=== PATIENT | female | born 1935 | race Caucasian/White ===

== ENCOUNTER 2017-01-15 09:02 | Inpatient (IN) ==
--- NOTE | 2017-01-15 09:31 | PROVIDER DOCUMENTATION ---
HPI-Headache - General Chief Complaint: Headache Stated Complaint: HEADACHE, NO APPETITE Time Seen by Provider: 01/15/17 09:11 Source: patient Allergies/Adverse Reactions: Patient Allergies Allergy/AdvReac Type Severity Reaction Status Date / Time No Known Allergies Allergy Verified 01/15/17 09:32 Home Medications: Home Medication List Medication Instructions Recorded Confirmed Last Taken Type Cholecalciferol (Vitamin D3) 1,000 unit PO DAILY 02/20/14 01/15/17 01/15/17 History [Vitamin D] Digoxin [Digox] 125 mcg PO DAILY 02/20/14 01/15/17 01/15/17 History Apixaban [Eliquis] 2.5 mg PO BID 01/15/17 01/15/17 01/15/17 History Aspirin [Aspir-Low] 81 mg PO DAILY 01/15/17 01/15/17 01/15/17 History Diltiazem HCl [Diltiazem 24Hr ER] 180 mg PO DAILY 01/15/17 01/15/17 01/15/17 History Levofloxacin [Levaquin] 250 mg PO DAILY #5 tablet 01/15/17 Unknown Rx - History of Present Illness-Headache Nature of Presenting Problem: 81 YO WF presents with FOLEY x 2 days and lack of appetite/no eating, sent from an urgent care clinic this morning. Says this "doesn't happen to her" but thinks she has over exerted herself with increased walking activity lately. FOLEY has decreased since being in the ED. Is a frontal headache, no vision changes or N/ V. Does not have a hx of FOLEY. Only health hx is some kind of heart problem, [facility]; no PCM. Takes anticoags. Denies chest pain, SOB, palpitations, vision changes, fever, weight loss, night sweats, abdominal pain, urinary changes. 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 Headache Location: reports: frontal Quality of Pain: reports: aching, dull Severity: reports: moderate Onset/Duration: reports: 2 days ago Timing: reports: still present, improving Headache Context: reports: nothing Any recent trauma/injury?: reports: none Headache severity at the maximum: moderate Preceding Symptoms: denies: visual disturbances, scotoma, aura(s), typical of previous aura(s) Headache Exacerbated by:: reports: nothing Modifying Factors: improves with: analgesics (tried aspirin, did not help) Associated Symptoms: reports: headache, other (no appetitie). denies: short of breath, decreased ability to walk or stand, fainting, dizziness, confusion, chest pain, neck/back pain, fatigue, fever/chills, insomnia, loss of consciousness, muscle spasms, nausea, numbness in legs/feet, paresthesia, diaphoretic, ringing in ears, sleepy, slurred speech, tingling in legs/feet, trouble walking, vomiting, vision changes, weakness Similar Symptoms Previously?: No Recently seen or treated by another doctor?: No Review of Systems - Adult - REVIEW OF SYSTEMS - ADULT Constitutional: denies: chills, fever Eyes: denies: decreased vision, blurred vision, double vision Ears, Nose, Mouth & Throat: denies: ear pain, sinus problem, nose pain, hoarseness, throat pain, throat swelling Cardiovascular: denies: chest pain, syncope Respiratory: denies: cough, shortness of breath, wheezing Gastrointestinal: reports: poor appetite. denies: abdominal pain, diarrhea, nausea, vomiting Genitourinary: denies: dysuria, discharge, frequency, hematuria, incontinence, urinary retention, urgency Musculoskeletal: denies: bone pain, back pain, joint pain, joint swelling, neck pain Integumentary: denies: itching, rash, skin sores/ulcer Neurological: reports: headache/migraines. denies: dizziness/vertigo Past History - Adult - PAST MEDICAL HISTORY-ADULT Review of Records: reports: Old Records Reviewed, Nursing Assessment Review, Medications Reviewed Cardiovascular: reports: A-Fib - FAMILY HISTORY Family History: reviewed, not pertinent Physical Exam- Neurological - Physical Exam-Neuro Initial Vital Signs Reviewed: Yes General Appearance: appears well, alert, no apparent distress Eye Exam: bilateral eye: normal inspection, PERRL, EOMI HENMT: normocephalic/atraumatic, moist mucous membranes, normal ENT inspection, TMs normal, pharynx normal. negative: hearing deficit, pharyngeal erythema, tonsillar exudate Head Injury: no evidence of injury Neck: full range of motion, supple, normal inspection Respiratory: lungs clear, normal breath sounds, no respiratory distress, no accessory muscle use. negative: crackles, rales, rhonchi, stridor, wheezing Cardiovascular: normal peripheral pulses, tachycardia, irregularly irregular. negative: no edema, no gallop, no JVD, no murmur Abdominal Exam: non tender, soft. negative: distended, guarding, rigid, rebound , tenderness Peripheral Pulses: radial (R): 2+, radial (L): 2+, dorsalis-pedis (R): 2+, dorsalis-pedis (L): 2+ Extremity: non-tender, normal gait, normal inspection, no pedal edema, no calf tenderness. negative: deformity, erythema, inflammation, joint effusion last putter away Exam: normal hearing, normal speech, PERRL. negative: abnormal speech, facial asymmetry, facial droop, facial paresthesias, facial weakness, tongue deviation to R, tongue deviation to L Coordination/Gait: normal finger to nose, normal gait Motor/Sensory: no motor deficit, no sensory deficit, no pronator drift Neurologic: last putter away II-XII nml as tested, grossly normal Integumentary: normal color, warm/dry Psych/Mental Status: normal mood/affect, normal thought content, normal thought process - Glascow Coma Scale Best Eye Response: (4) open spontaneously Best Verbal Response: (5) oriented Best Motor Response: (6) obeys commands Progress - PLAN OF CARE/RESULTS Progress/Plan/Lab Results: Vital Signs - 8 hr 01/15/17 09:05 01/15/17 10:53 01/15/17 11:14 Temperature 97.9 F Pulse Rate 119 H 116 H 96 H Respiratory Rate 18 16 17 Blood Pressure 160/111 168/110 159/95 O2 Sat by Pulse Oximetry 100 98 95 01/15/17 12:50 01/15/17 14:08 01/15/17 14:27 Temperature 97.7 F Pulse Rate 106 H 102 H 98 H Respiratory Rate 16 17 20 Blood Pressure 142/101 166/113 165/95 O2 Sat by Pulse Oximetry 96 97 98 01/15/17 14:54 Temperature Pulse Rate 93 H Respiratory Rate 18 Blood Pressure 161/109 O2 Sat by Pulse Oximetry 96 Laboratory Results - last 24 hr 01/15/17 01/15/17 01/15/17 09:35 09:41 09:41 WBC 9.74 RBC 4.82 Hgb 16.1 H Hct 43.6 MCV 90.5 MCH 33.4 H MCHC 36.9 RDW Std Deviation 14.3 Plt Count 266 MPV 11.2 H Immature Gran % (Auto) 0.0 Neut % (Auto) 65.1 Lymph % (Auto) 24.5 [place] % (Auto) 7.8 Eos % (Auto) 2.1 Baso % (Auto) 0.5 Immature Gran # (Auto) 0.00 Neut # (Auto) 6.34 Lymph # (Auto) 2.39 [place] # (Auto) 0.76 H Eos # (Auto) 0.20 Baso # (Auto) 0.05 D-Dimer Sodium 145 Potassium 3.6 Chloride 107 Carbon Dioxide 23 L Anion Gap 15 BUN 13 Creatinine 1.2 H Estimated GFR/1.73 m2 43 BUN/Creatinine Ratio 11 Glucose 92 Calculated Osmolality 288 Calcium 9.4 Total Bilirubin 0.63 AST 17 ALT 16 Alkaline Phosphatase 66 Creatine Kinase 41 Troponin T Rqu-[id number]-Crxnajaxnel Pept Total Protein 7.2 Albumin 4.6 Globulin 2.6 Albumin/Globulin Ratio 1.8 Urine Source CLEAN CATCH Urine Color YELLOW Urine Turbidity CLEAR Urine pH 5.5 Ur Specific [place] 1.016 Urine Protein TRACE A Ur Glucose (Stick) NEGATIVE Ur Ketones (Stick) NEGATIVE Urine Blood NEGATIVE Urine Nitrite NEGATIVE Urine Bilirubin NEGATIVE Urobilinogen Dipstick NORMAL Urine Leukocytes MODERATE A Urine WBC (Auto) 10-20 A Urine RBC (Auto) <10 U Epithel Cells (Auto) <10 Urine Bacteria (Auto) NEGATIVE 01/15/17 01/15/17 01/15/17 09:41 09:41 09:41 WBC RBC Hgb Hct MCV MCH MCHC RDW Std Deviation Plt Count MPV Immature Gran % (Auto) Neut % (Auto) Lymph % (Auto) [place] % (Auto) Eos % (Auto) Baso % (Auto) Immature Gran # (Auto) Neut # (Auto) Lymph # (Auto) [place] # (Auto) Eos # (Auto) Baso # (Auto) D-Dimer 0.14 Sodium Potassium Chloride Carbon Dioxide Anion Gap BUN Creatinine Estimated GFR/1.73 m2 BUN/Creatinine Ratio Glucose Calculated Osmolality Calcium Total Bilirubin AST ALT Alkaline Phosphatase Creatine Kinase Troponin T < 0.010 [id number] Pept 2105 H Total Protein Albumin Globulin Albumin/Globulin Ratio Urine Source Urine Color Urine Turbidity Urine pH Ur Specific [place] Urine Protein Ur Glucose (Stick) Ur Ketones (Stick) Urine Blood Urine Nitrite Urine Bilirubin Urobilinogen Dipstick Urine Leukocytes Urine WBC (Auto) Urine RBC (Auto) U Epithel Cells (Auto) Urine Bacteria (Auto) Orders Category Date Time Status CHEST-2 VIEWS [RAD] Stat Exams 01/15/17 11:[address] HEAD W/O CONTRAST [CT] Stat Exams 01/15/17 09:23 Completed CBC WITH DIFF [HEME] Stat Lab 01/15/17 09:41 Completed CK PROFILE [SP CHEM] Stat Lab 01/15/17 09:41 Completed COMPREHENSIVE METABOLIC PANEL [CHEM] Stat Lab 01/15/17 09:41 Completed D-DIMER [CHEM] Stat Lab 01/15/17 09:41 Completed PRO B-NATRIURETIC PEPTIDE Stat Lab 01/15/17 09:41 Completed TROPONIN T Stat Lab 01/15/17 09:41 Completed UA NIMS W/REFLEX CULT [URINALYSIS] Stat Lab 01/15/17 09:35 Completed URINE CULTURE [RM] Routine Lab 01/15/17 11:30 Received Levofloxacin 250 mg/D5w [Levaquin 250 mg/D5w] Med 01/15/17 12:34 Discontinued 250 mg in 50 ml IV NOW Metoprolol [Lopressor] Med 01/15/17 10:02 Discontinued 5 mg IV NOW ONE Metoprolol [Lopressor] Med 01/15/17 12:34 Discontinued 5 mg IV NOW ONE EKG [EKG] Routine Ther 01/15/17 11:20 Draft EKG [EKG] Stat Ther 01/15/17 09:24 Draft Pt BP and HR continue to stay up despite Lopressor. Will discuss admission with pt again, very concerning that has a fib, elevated BP. Per Dr. Story will have ot sign AMA if does not want to stay for admission. Discussed with pt, agrees to be admitted. Admit for UTI, altered mental status, HTN, A fib. Result Diagrams: 01/15/17 09:41 01/15/17 09:41 - REASSESSMENT Reassessment #1 Time Reassessed: 09:59 (Discussed with Dr. Story. Pt has a fib with rapid response, no SOB or cheste pain currently but states can "feel her heart beating ". Recommends Lopressor, wait for rest of cardiac labs to come back. ) Reassessment #2 Time Reassessed: 10:52 (NEG cardiac labs. Pt just had Lopressor given, will recheck vitals and EKG, per Dr. Story and see if slows/converts. ) Reassessment #3 Time Reassessed: 12:34 (Dr. Story at bedside. Recommends second round of Lopressor, abx and can d/c home with abx and follow up with [facility] and her pCM. ) Reassessment #4 Time Reassessed: 13:53 (Rechecked pt. She has a different attitude every time i have been in the room, some times happy and grateful, and sometimes says no one has been in to see her at all, she hasn't been able to go to the bathroom, etc. Dr. Story at bedside. Discussed with him that pt seems altered. Has UTI, is having to get a second round of Lopressor. Pt doesn't know why she goes to the [facility]. Recommend admission. Dr. Story agrees. ) Reassessment #5 Time Reassessed: 14:21 (Pt refuses admission. Wants to go home. Agrees with staying ot make sure her BP/HR goes down, but declines to stay in the hospital. Discussed with Dr. Story, agrees with plan. Pt states she will call tomorrow for appt with [facility]. Denies chest pain/SOB or any pain anywhere currently. Current vitals: 165/95, HR 113. ) - CONSULTS/PCP/HOSPITALIST Notification #1 *Consult/PCP/Hospitalist*: DEONTE Wharton for Hospitalist. Dr. Vera Time Discussed: 16:11 (Admit for UTI, altered mental status, A fib with RVR, A flutter. ) Consult Disposition: Admit Departure - Departure Date of Disposition Decision: 01/15/17 Time of Disposition Decision: 16:12 DIAGNOSIS: Atrial fibrillation with RVR UTI (urinary tract infection) Qualifiers: Urinary tract infection type: acute cystitis Hematuria presence: without hematuria Qualified Code(s): N30.00 - Acute cystitis without hematuria Atrial fibrillation Qualifiers: Atrial fibrillation type: chronic Qualified Code(s): I48.2 - Chronic atrial fibrillation Altered mental status Qualifiers: Coma depth: unspecified coma depth Disposition: ADMITTED INPATIENT 09 Certified Medical Emergency: Emergent Condition: Stable Additional Freetext Instructions: take all of the antibiotics until they are gone. Call the [facility] tomorrow schedule a follow up appointment next week, and also follow up with your primary care provider next week as planned. Return to the ER if your symptoms worsen, you develop chest pain or shortness of breath. ED Follow Up Instructions: You have been treated by a care provider in the Emergency Department. These instructions are being provided to you so you can have an understanding of how to care for yourself upon discharge. Upon discharge from the Emergency Department, you are responsible for making arrangements for follow-up care by a physician of your choice. Take all prescribed medications as directed. Return to the Emergency Department immediately for any new or worsening symptoms. You may call the Physician Referral phone number at [phone] to obtain a list of Physicians who are taking new patients. Prescriptions: Levofloxacin [Levaquin] 250 mg PO DAILY #5 tablet Referrals and Follow-Ups: None,PCP [Primary Care Provider] - Discharge Education: Urinary Tract Infection, [id number], Atrial Fibrillation , [id number] - Critical Care Note This patient required my direct & personal management of CC.: No Attestation - Physician/ GRAZYNA Attestation Patient care was provided by Advanced Practice Provider:: Yes Advanced Practice Provider:: Cornelio Moncada Advanced Practice Provider documentation review:: The Mid-level provider documentation, treatment plan and medical decision making was reviewed by the physician who agrees with all treatment and medical decision making by the MLP. The physician spent face to face time with patient:: Yes Advanced Practice Provider documentation review:: Supervising physician onsite and consulted in the evaluation and care of this patient. The physician did have a face to face encounter with the patient.
--- NOTE | 2017-01-15 09:43 | EKG Report ---
Test Performed on : 01/15/2017 09:20:13 AM Test Reason : tachycardia, FOLEY Blood Pressure : / mmHG Vent. Rate : 124 BPM Atrial Rate : 122 BPM P-R Int : 000 ms QRS Dur : 066 ms QT Int : 314 ms P-R-T Axes : 000 -02 -69 degrees QTc Int : 451 ms Atrial fibrillation. with rapid ventricular response. Possible Inferior infarct , age undetermined ST \T\ T wave abnormality, consider anterolateral ischemia Abnormal ECG When compared with ECG of 20-FEB-2014 04:22, ST now depressed in Anterior leads T wave inversion now evident in Anterolateral leads Unconfirmed Result
[2017-01-15 09:53] LABS: URINE MICRO REVIEW NEEDED? NO; URINE SOURCE CLEAN CATCH
[2017-01-15] MEDS ORDERED: LOPRESSOR IV ONE ×2 (10:02→12:34)
[2017-01-15 10:04] LABS: BILIRUBIN URINE NEGATIVE (NEGATIVE); BLOOD URINE NEGATIVE (NEGATIVE); COLOR YELLOW; GLUCOSE URINE NEGATIVE (NEGATIVE); LEUKOCYTES URINE MODERATE (NEGATIVE); NITRITE URINE NEGATIVE (NEGATIVE); PH URINE 5.5; PROTEIN URINE TRACE mg/dL (NEGATIVE); SP GRAVITY URINE 1.016; TURBIDITY URINE CLEAR (CLEAR); UROBILINOGEN URINE NORMAL (NORMAL)
[2017-01-15 10:06] LABS: BASO% 0.5 % (0.0-0.8); EOS% 2.1 % (0.0-10.0); HEMATOCRIT 43.6 % (37.0-47.0); HEMOGLOBIN 16.1 g/dL (12.0-16.0); LYMPH# 2.39 X1000 (1.2-3.4); LYMPH% 24.5 % (20.5-51.1); MANUAL DIFF NEEDED? NO; MCH 33.4 PG (27-31); MCHC 36.9 g/dL (33-37); MCV 90.5 FL (81-99); MONO# 0.76 X1000 (0.11-0.59); MONO% 7.8 % (1.7-9.3); MPV 11.2 FL (7.4-10.4); NEUT% 65.1 % (42.2-75.2); PLT 266 X1000 (130-400); RBC 4.82 XMIL (4.2-5.4)
[2017-01-15 10:06] LABS: UR EPITHELIAL CELLS <10 /HPF (<10); URINE BACTERIA NEGATIVE /HPF; URINE CULTURE NEEDED? YES; URINE RBC <10 /HPF (<10)
[2017-01-15 10:20] LABS: ALBUMIN 4.6 g/dL (3.5-5.0); CALCIUM 9.4 mg/dL (8.8-10.2); POTASSIUM 3.6 mmol/L (3.5-5.1); TOTAL BILIRUBIN 0.63 mg/dL (0.20-1.00); TOTAL PROTEIN 7.2 g/dL (6.3-8.3)
--- NOTE | 2017-01-15 10:20 | Diag Imaging Result Doc PS360 ---
EXAM: CT HEAD W/O CONTRAST HISTORY: new onset FOLEY x 2 days TECHNIQUE: CT of the head without contrast with dose reduction (clarity.) COMMENT: There is generalized cerebral atrophy. There is abnormal lucency in the external capsules bilaterally. No evidence of mass effect, bleed, abnormal extra-axial fluid collection, or hydrocephalus is present. The visualized paranasal sinuses are clear. Compared to 02/20/2014 there has been no appreciable change. IMPRESSION: Chronic ischemic changes. No evidence of acute disease. Electronically signed by Brandon Sellers 01/15/2017 10:17 AM
--- NOTE | 2017-01-15 12:22 | Diag Imaging Result Doc PS360 ---
EXAM: CHEST-2 VIEWS HISTORY: a fib, palpitations TECHNIQUE: Two views COMPARISON: 02/20/2014 FINDINGS: The lungs are well expanded. The heart is not enlarged. The vessels are not distended. There are no infiltrates. No pleural effusions. IMPRESSION: No acute abnormality. Electronically signed by Rob Benavides 01/15/2017 12:20 PM
[2017-01-15] MEDS ORDERED: LEVAQUIN 250 MG/D5W 250 MG/50 ML IVPB IV ONE (12:34)
--- NOTE | 2017-01-15 12:35 | EKG Report ---
Test Performed on : 01/15/2017 11:12:58 AM Test Reason : tachycardia, FOLEY Blood Pressure : / mmHG Vent. Rate : 089 BPM Atrial Rate : 091 BPM P-R Int : 000 ms QRS Dur : 068 ms QT Int : 310 ms P-R-T Axes : 000 -12 -40 degrees QTc Int : 377 ms Atrial fibrillation. Possible Inferior infarct (cited on or before 15-JAN-2017) ST \T\ T wave abnormality, consider anterolateral ischemia Abnormal ECG When compared with ECG of 15-JAN-2017 09:20, (Unconfirmed) No significant change was found Unconfirmed Result
[2017-01-15] MEDS ORDERED: CARDIZEM IV ONE (18:18)
[2017-01-15] MEDS ORDERED: ROCEPHIN 1 GM in NS 50 ML IV SCH (18:30)
[2017-01-15] MEDS ORDERED: ROCEPHIN ONE (18:46)
[2017-01-15] MEDS ORDERED: NS 50 ML ONE (18:47)
[2017-01-15] MEDS ORDERED: NS 1,000 ML ONE (18:47)
[2017-01-15] MEDS: NS 1,000 ML IV SCH (18:50)
--- NOTE | 2017-01-15 19:04 | HISTORY AND PHYSICAL ---
CHIEF COMPLAINT: Headache. HISTORY OF PRESENT ILLNESS: Mrs. Koo is a pleasant 81-year-old female with a history of what appears to be chronic atrial fibrillation. The patient is a poor historian and likely has some dementia and is unable to give us a very detailed history, but per reports , she went to her PCPs office today and was sent here for a headache and possibly tachycardia. The patient got to the ER and was noted to be in atrial flutter with a rapid response. She was given 2 different pushes of IV metoprolol. However, her heart rate has maintained in the 120s to 130s. We are currently going to put her on an IV Cardizem bolus and drip. She is also fairly confused. She has difficulty answering orientation questions correctly; however, she does not have any focal deficits. Head CT was done in the ER today, which showed chronic ischemic changes, but nothing acute. Her laboratory data is fairly unremarkable, she does have a mild UTI. As such, she is going to be admitted to the CICU for further treatment and evaluation. PAST MEDICAL HISTORY: Chronic atrial fibrillation. SURGICAL HISTORY: None. SOCIAL HISTORY: Patient is . She lives alone. She does not smoke, drink or use drugs. FAMILY HISTORY: Noncontributory. REVIEW OF SYSTEMS: Fourteen-point review of systems obtained and found to be negative with the exception of the HPI. ALLERGIES: No known drug allergies. HOME MEDICATIONS: 1. Eliquis 2.5 mg p.o. b.i.d. 2. Aspirin 81 mg daily. 3. Vitamin D3 1000 units p.o. daily. 4. Digoxin 125 mcg p.o. daily. 5. Diltiazem 24 ER 180 mg p.o. daily. PHYSICAL EXAMINATION: VITAL SIGNS: Blood pressure is 161/109, heart rate is 123, O2 saturation is 96 % on room air, temperature is 97.7 degrees. GENERAL: This is an elderly and frail-appearing 81-year-old female, lying in hospital bed. No acute distress. NEUROLOGIC: The patient is awake and alert, but she is confused. She follows commands without focal deficits. HEENT: Head is atraumatic, normocephalic. Pupils equal, round, reactive to light. Oral mucosa is moist. Trachea is midline. No JVD. CHEST: Clear to auscultation bilaterally. CV: Tachycardic and irregular. S1-S2 is noted. A 1/6 systolic ejection murmur noted. GI: Soft, nondistended, nontender. Bowel sounds positive. EXTREMITIES: No edema, clubbing or cyanosis. Pulses palpable bilaterally. DIAGNOSTIC DATA: Head CT: Chronic changes. Nothing acute. EKG: Atrial flutter with variable block. Rapid ventricular response. Chest x-ray: No acute abnormality. LAB DATA: WBC 9.74, hemoglobin 16.1, hematocrit 43.6, platelet count is 266, D- dimer 0.14. Sodium 145, potassium 3.6, chloride 107, CO2 23, anion gap 15, BUN 13, creatinine 1.2, glucose is 92, calcium 9.4, bilirubin 0.63, AST 17, ALT 16, alkaline phosphatase 66, proBNP 2105, albumin 4.6. UA shows possible urinary tract infection. ASSESSMENT/PLAN: 1. Atrial flutter with a rapid ventricular response: We are going to place the patient on Cardizem bolus and drip. Check thyroid function. Complete panel of electrolytes and consult Cardiology. She is already on p.o. Cardizem and Eliquis; however, her rate is not being maintained at this time, so we are going to switch over to IV. We will ultimately defer treatment to Cardiology. 2. Headache: Appears to be tension headache. Head CT does not show anything acute. She is not complaining of headache at this time. We will continue to monitor. 3. Mild renal insufficiency: Creatinine 1.2 with a GFR 43. We will monitor this and check BMP tomorrow. Put her on some very light IV fluids at around 30 mL an hour. 4. Confusion: The patient appears to have dementia. She does not have any focal deficits and no real metabolic derangements. She does have a urinary tract infection, so we are going to treat that, but is unlikely going to give her the amount of confusion that she does have. We will continue to monitor closely, possibly have neuro evaluate the patient. 5. Urinary tract infection: We will start Rocephin IV and culture her urine. 6. Deep vein thrombosis prophylaxis. Provided with her home Eliquis. Further recommendations to follow. Dictated by DEONTE Hoffmann for Matthias Vera MD cc: DEONTE Hoffmann MD I have seen and examined this patient. I have provided face to face evaluation. I have also reviewed her labs, EKG and imagine studies. Patient resented with Afib with RVR. Will continue with the plan as above. I have explained my findings with the patient and also the plan. ALCONQClaudia FANG
[2017-01-15 19:17] LABS: FREE T4 1.19 ng/dL (0.93-1.70)
[2017-01-15] MEDS ORDERED: CARDIZEM PO ONE (20:58)
[2017-01-15] MEDS: CARDIZEM 100 MG/NS 100 MG/100 ML IVPB IV SCH (20:59)
[2017-01-15] MEDS: ELIQUIS PO SCH (21:09)
[2017-01-16 05:21] LABS: HEMATOCRIT 39.9 % (37.0-47.0); HEMOGLOBIN 14.7 g/dL (12.0-16.0); MCH 34.3 PG (27-31); MCHC 36.8 g/dL (33-37); MCV 93.2 FL (81-99); MPV 11.4 FL (7.4-10.4); RBC 4.28 XMIL (4.2-5.4)
[2017-01-16 05:31] LABS: CALCIUM 9.1 mg/dL (8.8-10.2); POTASSIUM 3.3 mmol/L (3.5-5.1)
--- NOTE | 2017-01-16 09:18 | ED EKG INTERP ---
This chart was entered by Branden Rowe Scribe, acting as scribe for Tyrese Story MD. EKG Interpretation - EKG Time of EKG reading by physician:: 10:00 EKG Read and Signed by:: Tyrese Story EKG Interpretation (*Must complete 3 of following elements*): Abnormal Rate: 124 Rhythm: A-fib with RVR QRS: normal ST Wave: non-specific ST changes - EKG # 2 Time of EKG reading by physician:: 11:12 EKG Read and Signed by:: Tyrese Sotry EKG Interpretation (*Must complete 3 of following elements*): Abnormal Rate: 89 Rhythm: a-fib QRS: normal ST Wave: non-specific ST changes Attestation - Physician/ GRAZYNA Attestation Patient care was provided by Advanced Practice Provider:: Yes Advanced Practice Provider:: Cornelio Moncada Advanced Practice Provider documentation review:: The Mid-level provider documentation, treatment plan and medical decision making was reviewed by the physician who agrees with all treatment and medical decision making by the MLP. The physician spent face to face time with patient:: No Advanced Practice Provider documentation review:: Supervising physician onsite and consulted in the evaluation and care of this patient. The physician did not have a face to face encounter with the patient. This chart was documented by the indicated scribe, (Branden Rowe Scribe) and accurately reflects the services I performed and decisions made by Jez lee Christophe I, MD, as attested by the provider's signature.
[2017-01-16] MEDS ORDERED: LANOXIN ONE (10:10)
[2017-01-16] MEDS: ASPIRIN EC PO SCH (10:11)
[2017-01-16] MEDS: LANOXIN PO SCH (10:11)
[2017-01-16] MEDS: VITAMIN D PO SCH (10:11)
[2017-01-16] MEDS: CARDIZEM CD PO SCH (10:12)
[2017-01-16] MEDS: ELIQUIS PO SCH ×2 (10:12→20:35)
[2017-01-16] MEDS ORDERED: KLOR-CON PO ONE (10:56)
--- NOTE | 2017-01-16 11:23 | CONSULTATION ---
DATE OF CONSULTATION: 01/16/2017 INDICATION: Atrial fibrillation with rapid ventricular response in a patient with chronic atrial fibrillation. HISTORY OF PRESENT ILLNESS: Ms. Koo is a 81-year-old white female with a history of chronic atrial fibrillation, normally maintained on low-dose Eliquis, Cardizem, digoxin, and Toprol. She recently saw Dr. Menjivar in late November and was titrated up on her Toprol from 25 to 50 for heart rates in the 120s at the time of the exam. She was not complaining at the time of any angina or dyspnea. She came in today after being referred from [place] where she originally when in for complaints of a headache. She is unclear exactly why they referred to the ER but thinks that it may have been related to her heart rate. She does have some complaints about her living situation at home as she is a question about some bills. She is questioning how long she can stay in the hospital. PAST MEDICAL HISTORY: 1. Significant for coronary disease. 2. Chronic atrial fib, maintained on low-dose Eliquis. 3. Hypertension. 4. Hyperlipidemia. 5. History of migraines. SOCIAL HISTORY: She is . She lives alone. No tobacco, alcohol, or illicit drugs. FAMILY HISTORY: Significant for hypertension. REVIEW OF SYSTEMS: A 10 system review of systems is negative except for those things mentioned in the HPI. PHYSICAL EXAMINATION: Vital signs: She has been afebrile. Her heart rates have been widely variable, anywhere from the 70s to the 140s at the time of my examination. Blood pressure 137/94. General: She is in no acute distress. HEENT: Oropharynx is moist. She has poor dentition. Eye examination shows pink conjunctivae, white sclerae. Neck: Examination shows no obvious thyromegaly or thyroid tenderness. Cardiovascular: She is in a irregularly irregular rhythm with a tachycardic rate. She has no obvious murmurs. She has no lower extremity edema. No carotid bruits. Chest: Sounds clear bilaterally. No increased work of breathing. Abdomen: Soft, nontender, nondistended. She has no obvious organomegaly. Skin Exam: Warm and dry throughout without any rashes. Neurological: Moving all extremities well. Cranial nerves 2 through 12 are intact without any sensation deficits. Psychiatric: Alert, oriented, and pleasant. She has normal mood and affect. PERTINENT DATA: Her CT of the head shows chronic ischemic changes. No acute findings. Her original EKG on presentation shows atrial fibrillation, rapid ventricular response, rate of 124 beats per minute. She has mild ST depression in the anterior lateral leads. Subsequent EKG after that showed atrial fib, rate of 89 beats per minute. Persistence of those mild ST depressions in the anterior lateral leads. This EKG looked somewhat similar to the previous 1 that she had in the clinic. She had a chest x-ray demonstrating no evidence of any acute abnormalities. Her laboratory data shows white count of 7.4, hematocrit is 39, platelet count 247,000. Sodium is 143, potassium 3.3, BUN 13, creatinine 1.1. Her phosphorus is 2.6. Her cardiac enzymes are negative. Her proBNP was 2,105. Urinalysis was reviewed and had 10-20 WBCs. ASSESSMENT: 1. Atrial fibrillation with rapid ventricular response in a patient with a history of chronic atrial fibrillation. 2. Hypokalemia. PLAN: Will continue her home medications with the exception of increasing her beta varun to metoprolol tartrate 25 mg q.6 hours. Hopefully that will achieve rate control. We will plan on doing her echo in the morning as her rate is quite elevated today and would likely not be beneficial. I will replete her potassium with 60 mEq of oral potassium. cc: Jorge Reyes MD
[2017-01-16] MEDS: LOPRESSOR PO SCH ×3 (12:36→20:36)
--- NOTE | 2017-01-16 15:33 | PROGRESS NOTE ---
DATE: 01/16/2017 SUBJECTIVE: Today Ms. Koo refers to be doing fine. Denies of any more headaches. Specifically, she denies of any urinary symptoms. Briefly Ms. Koo went to see her PCP yesterday and apparently her pulse was extremely high, so was advised to come to the emergency room. Upon arrival, her pulse was about 119-120 in atrial fibrillation. The patient was subsequently admitted for better control. OBJECTIVE: Vital signs: Blood pressure is 133/96, pulse is 124, respiration is 24 and temperature 97.9 degrees. General: Ms. Koo is a 81-year-old, female. She is sitting up on the edge of the bed. There was another friend at the bedside during the time of the encounter. She was not in any distress. HEENT: Mucosa is pink and moist. Anicteric. Acyanotic. Neck: Supple. Chest: Good air entry bilateral. No crepitations. No rhonchi. Cardiovascular: Regular rate and rhythm. Abdomen: Soft, nontender. Bowel sounds are present. Extremities: No pedal edema. REEL FILM INSPECTOR: Patient is awake and alert and oriented x4. There is no focal neurological deficit. LABORATORY DATA: WBC is 7.38, hemoglobin is 14.7, platelet count of 247. Chemistry is also reviewed, unremarkable except for potassium of 3.3, and creatinine is 1.1. Rest of chemistry is unremarkable. X-RAY DATA: Chest x-ray reviewed unremarkable. A CT scan of the head which was done on presentation because of altered mental status and headaches show chronic ischemic changes. No evidence of acute disease. CULTURES: A urine culture has shown no growth. ASSESSMENT: 1. Atrial fibrillation with rapid ventricular response. Patient has h/o chronic atrial fibrillation. Follows up normally with Dr. Wolff. She has been started on her regular medications and metoprolol has been added by cardiology. We will continue to observe. 2. Altered mental status improved. I think there is probably some delirium on top of her baseline dementia. 3. History of essential tremor noted. 4. Dirty urine with culture negative. Patient was started on antibiotics. I will go ahead and discontinue this. 5. Hypokalemia. We will replace this. cc: Matthias Vera MD [facility]
[2017-01-16] MEDS: CARDIZEM 100 MG/NS 100 MG/100 ML IVPB IV SCH (18:16)
[2017-01-16] MEDS: NS 1,000 ML IV SCH (23:41)
[2017-01-17] MEDS: LOPRESSOR PO SCH ×2 (03:07→09:06)
--- NOTE | 2017-01-17 06:53 | EKG Report ---
Test Performed on : 01/17/2017 06:32:23 AM Test Reason : afib Blood Pressure : / mmHG Vent. Rate : 077 BPM Atrial Rate : 394 BPM P-R Int : 000 ms QRS Dur : 068 ms QT Int : 328 ms P-R-T Axes : 000 -10 -76 degrees QTc Int : 371 ms Atrial fibrillation. Possible Inferior infarct (cited on or before 15-JAN-2017) ST \T\ T wave abnormality, consider lateral ischemia Abnormal ECG When compared with ECG of 15-JAN-2017 11:12, No significant change was found Confirmed by Elias Perez MD ([id number]) on 01/17/2017 1:34:20 PM
[2017-01-17 08:41] LABS: HEMATOCRIT 41.5 % (37.0-47.0); HEMOGLOBIN 15.3 g/dL (12.0-16.0); MCH 34.5 PG (27-31); MCHC 36.9 g/dL (33-37); MCV 93.5 FL (81-99); MPV 11.3 FL (7.4-10.4); RBC 4.44 XMIL (4.2-5.4)
[2017-01-17 08:55] LABS: CALCIUM 8.5 mg/dL (8.8-10.2); POTASSIUM 5.1 mmol/L (3.5-5.1)
[2017-01-17] MEDS: ASPIRIN EC PO SCH (09:06)
[2017-01-17] MEDS: VITAMIN D PO SCH (09:08)
[2017-01-17] MEDS: LANOXIN PO SCH (09:08)
[2017-01-17] MEDS: CARDIZEM CD PO SCH (09:08)
[2017-01-17] MEDS: ELIQUIS PO SCH (09:09)
--- NOTE | 2017-01-17 11:23 | PROGRESS NOTE ---
DATE: 01/17/2017 SUBJECTIVE: This morning, Ms. Koo was sitting up in the chair. She refers to be doing a lot better. No shortness of breath. No chest pain. No headaches, and no urinary symptoms. OBJECTIVE: Vital signs: Blood pressure is 131/77, pulse is 87, respirations 18, temperature 98.1 degrees. General: Ms. Koo is a 81-year-old very pleasant female. She is sitting up in a chair, not in any distress. HEENT: Mucosa is pink and moist. Anicteric. Acyanotic. Neck: Supple. Chest: Clear. Cardiovascular: Irregularly irregular but rate controlled. No murmurs, no rubs. No gallops. Abdomen: Soft, nontender. SUPERINTENDENT REFUSE DISPOSAL: Patient is awake, alert, and oriented x3. However, patient seems to have some minimal memory impairment. She is repeating herself every now and then, and she forgets in the middle of a conversation what she is saying. But patient has no focal neurological deficit and follows commands. LABORATORY DATA: CBC is reviewed, completely unremarkable. Chemistry is reviewed, stable. ASSESSMENT: 1. Atrial fibrillation with rapid ventricular response, currently rate controlled. Patient will continue with the digoxin, diltiazem and now, Lopressor has been added. She has been rate controlled for the past 24 hours. So I think she is ready to be discharged. 2. Altered mental status improved. I think patient did have some delirium on top of the baseline dementia. 3. History of essential tremor noted. The beta-varun will also help with his regard. Dirty urine with negative culture. Patient is asymptomatic. Antibiotics have been discontinued. 1. Hypokalemia has improved with replacement. 2. Suspected Alzheimer dementia. PLAN: So today, Ms. Koo is clinically stable. Heart rate is better controlled. She is going to be discharged today to follow up with Dr. Reyes, who is her middle school professional and also follow up with her primary care doctor. Will also get her home health to be checking on her make sure medications are fine, that the patient does not need any other medical care at home. cc: Matthias Vera MD
[2017-01-17 12:45] VITALS: BP 127/95
--- NOTE | 2017-01-17 13:56 | ECHO REPORT ---
ORDER DATE: 01/17/2017 INDICATION: Atrial fibrillation. FINDINGS: 1. The right atrium is moderately enlarged. 2. Moderate tricuspid regurgitation. RV systolic pressure of 43. 3. Normal RV size and systolic function. 4. No significant pulmonic insufficiency. 5. Moderate left atrial enlargement with a left atrial volume index of 39. 6. No mitral prolapse and mild mitral regurgitation. 7. Normal LV size, end-diastolic dimension of 3.6. Mild left ventricular hypertrophy with a posterior and interventricular septal wall thickness 1.2 cm each. Normal LV systolic function, and the calculated EF is 71% with normal wall motion. 8. Aortic valve opens well. There is mild aortic insufficiency and no evidence of stenosis. The valve is trileaflet. 9. Aorta appears normal visualized segments. 10. No pericardial effusion seen. 11. The Doppler inflow pattern appears to be consistent with atrial fibrillation. cc: MD Alphonse Rodriguez CRNP
[2017-01-17] MEDS: CARDIZEM 100 MG/NS 100 MG/100 ML IVPB IV SCH (14:34)
[2017-01-17] MEDS ORDERED: LOPRESSOR PO SCH (21:00)
--- NOTE | 2017-01-18 15:20 | DISCHARGE SUMMARY ---
ADMISSION DATE: 01/15/2017 DISCHARGE DATE: 01/17/2017 CONSULTATIONS: Dr. Jorge Reyes with Cardiology. PERTINENT PROCEDURES: 1. Head CT showed chronic ischemic changes. No evidence of acute disease. 2. Chest x-ray showed no acute abnormality. DISCHARGE DIAGNOSES: 1. Atrial fibrillation with rapid ventricular response. Currently rate controlled. The patient will continue with digoxin, Cardizem, Cardiology added Lopressor and she will continue on her Eliquis and low-dose aspirin. 2. Altered metabolic encephalopathy secondary to delirium. Back to baseline dementia. 3. Essential tremor noted. 4. Dirty urine with a negative culture. Patient is asymptomatic. Antibiotics were discontinued. 5. Hypokalemia. Improved with replacement. 6. Suspected Alzheimer's dementia. HOSPITAL COURSE: Ms. Koo is a 81-year-old female with a history of chronic atrial fibrillation and dementia who is really unable to give any detailed history. She went to see her PCP and was sent to the ED for headache and possible tachycardia. She got to the ED was noted to be in atrial flutter with RVR. She was given 2 different pushes of IV metoprolol; however, her heart rate was maintained at 120s to 130s. She had a head CT in the ED that showed chronic ischemic changes, but nothing acute. Laboratory data was fairly unremarkable. Urinalysis showed a possible mild UTI. She was initiated on a Cardizem drip with a bolus and admitted to the [facility] with a Cardiology consult, started on IV antibiotics and gentle IV hydration. Dr. Reyes continued her home medications with the exception of increasing her beta varun to metoprolol 25 q.6 hours to achieve rate control and to continue repleting any electrolyte abnormalities. She was able to come off her Cardizem drip. Her atrial fibrillation is currently rate controlled and she is being discharged home today. VITAL SIGNS AT TIME OF DISCHARGE: Temperature is 98 degrees, heart rate 85, respirations 16, blood pressure 127/95, O2 is 100% on room air. DISCHARGE DIET: Healthy heart. DISCHARGE MEDICATIONS: 1. Eliquis 2.5 mg p.o. b.i.d. 2. Aspirin 81 mg p.o. daily. 3. Vitamin D3 1000 units p.o. daily. 4. Digoxin 125 mcg p.o. daily. 5. Diltiazem 24 hours ER 180 p.o. daily. 6. Metoprolol 25 mg p.o. q.6 hours. FOLLOW-UP: Ms. Koo is being discharged back home. She will follow up with her scrubber machine tender Jorge Reeys on 02/13/2017 at 10 a.m. She can return to the ED for any worsening of symptoms. Dictated by DEONTE Maciel for Matthias Vera MD cc: Matthias Vera MD Time spent for discharge 34 minutes. MTDD
== END 2017-01-17 15:06 | disposition home health service (06) ==
LOC: ED 09:02 → EDIPHOLD 17:15 → 3S 19:16
PROVIDERS: ATTEND Internal Medicine